=== PATIENT | male | born 1975 | race African-American/Black ===

== ENCOUNTER 2022-10-07 17:33 | Emergency (ER) | payer MEDICAID ==
[~2022-10-07] VITALS: Ht 177.8 cm; Wt 93.0 kg
[2022-10-07 17:43] VITALS: BP 133/91; PULSE 110; RESP 18; TEMP 98.3; O2SAT 98
[2022-10-07] MEDS ORDERED: BUSP15TA3 MT (21:32)
== END 2022-10-07 18:48 ==
LOC: ER 17:33
DX: Z76.0 Encounter for issue of repeat prescription (principal)
CPT/HCPCS: 99281

== ENCOUNTER 2022-10-07 20:38 | Emergency (ER) | payer MEDICAID ==
[~2022-10-07] VITALS: Ht 177.8 cm; Wt 92.0 kg
[2022-10-07 21:11] VITALS: BP 126/65; PULSE 120; RESP 20; TEMP 98.7; O2SAT 99
[2022-10-07] MEDS ORDERED: BUSP15TA3 MT (21:32)
== END 2022-10-07 21:48 | disposition home or self-care (01) ==
LOC: ER 20:38
DX: F41.9 Anxiety disorder, unspecified (principal); R05.3 Chronic cough; Z72.0 Tobacco use
CPT/HCPCS: 99281; 99283